=== PATIENT | female | born 1970 | race Caucasian/White ===

== ENCOUNTER 2020-01-16 23:48 | Emergency (ER) | payer OTHER ==
[~2020-01-16] VITALS: Ht 162.6 cm; Wt 54.4 kg
[2020-01-17 00:04] VITALS: Ht 162.6 cm; Wt 54.4 kg
[2020-01-17 03:50] VITALS: BP 122/71
== END 2020-01-17 03:50 | disposition home or self-care (01) ==
LOC: ED 23:48
DX: S01.112A Laceration without foreign body of left eyelid and periocular area, initial encounter (principal); F10.129 Alcohol abuse with intoxication, unspecified; W01.0XXA Fall on same level from slipping, tripping and stumbling without subsequent striking against object, initial encounter; Y93.89 Activity, other specified; Y92.89 Other specified places as the place of occurrence of the external cause; Y99.8 Other external cause status
CPT/HCPCS: J2001